=== PATIENT | female | born 1950 | race Asian ===

== ENCOUNTER 2023-10-26 13:58 | Emergency (ER) | payer MEDICARE ==
[~2023-10-26] VITALS: Ht 144.8 cm; Wt 44.5 kg
[2023-10-26 15:34] VITALS: BP 105/66; O2SAT 98
== END 2023-10-26 15:35 | disposition home or self-care (01) ==
LOC: ER 13:58
DX: S92.351A Displaced fracture of fifth metatarsal bone, right foot, initial encounter for closed fracture (principal); Z88.5 Allergy status to narcotic agent; W22.8XXA Striking against or struck by other objects, initial encounter; Y93.89 Activity, other specified; Y92.89 Other specified places as the place of occurrence of the external cause; Y99.8 Other external cause status
CPT/HCPCS: 73630; A4606; A4663